=== PATIENT | male | born 1990 | race Caucasian/White ===

== ENCOUNTER → 2019-09-05 | Outpatient (CLI) | payer SELFPAY ==
--- NOTE | 2019-09-05 14:19 | ER RDC ASSESSMENT REPORT ---
Intake - In the Last 14 days Have you traveled outside [place]?: No Have you been in close contact with someone CONFIRMED: Yes Worked in Healthcare?: No - Symptoms Subjective Fever([place] feverish): No Chills: No Muscule Aches: Yes Runny Nose: No Sore Throat: No Cough (New or worsening chronic cough): Yes Shortness of breath: No Nausea or Vomiting: No Headache: Yes Abdominal Pain: No Diarrhea(3 or more loose stools in last 24 hours): No - Do you have any of the following Chronic lung disease: Asthma or emphysema or COPD: No Cystic Fibrosis: No Diabetes: No High Blood Pressure: No Cardiovascular Disease: No Chronic Kidney Disease: No Chronic Liver Disease: No Chronic blood disorder like Sickle Cell Disease: No Weak immune system due to disease or medication: No Neurologic condition that limits movement: No Developmental delay - Moderate to Severe: No Morbid Obesity (>100 pounds over ideal weight): No - Objective Temperature: 97.2 F Pulse Rate: 85 Respiratory Rate: 18 Blood Pressure: 130/75 O2 Sat by Pulse Oximetry: 96 Objective: Given above, testing performed: covid Disposition: Home; Selfcare General - General Chief Complaint: Other Time Seen by Provider: 09/05/19 14:15 Mode of Arrival: Ambulatory Information source: Patient - HPI Notes: 28-year-old male presents to [facility] clinic for COVID-19 testing. Patient reports recent exposure to mother who has now tested positive. He does have some mild symptoms, onset 09/02/2019. He is reporting mild myalgia, a dry cough that comes and goes, and headache. Denies any fever, chills, rhinorrhea, sore throat, shortness of breath, nausea or vomiting, abdominal pain or diarrhea. Past Medical History - General Information source: Patient - Social History Smoking Status: Current Every Day Smoker - Past Medical History Cardiac Medical History: Reports: None Pulmonary Medical History: Reports: None EENT Medical History: Reports: None Neurological Medical History: Reports: None Endocrine Medical History: Reports: None Renal/ Medical History: Reports: None Malignancy Medical History: Reports None GI Medical History: Reports: None Musculoskeletal Medical History: Reports None Skin Medical History: Reports None Psychiatric Medical History: Reports: None Traumatic Medical History: Reports: None Infectious Medical History: Reports: None Past Surgical History: Reports: None Physical Exam - General General appearance: Appears well, Alert In distress: None Notes: PHYSICAL EXAMINATION: GENERAL: Well-appearing and in no acute distress. HEAD: Atraumatic, normocephalic. EYES: sclera anicteric, conjunctiva are normal. ENT: nares patent. Moist mucous membranes. NECK: Normal range of motion, supple without lymphadenopathy. LUNGS: No increased work of breathing. Lung sounds CTAB and equal. No wheezes rales or rhonchi. HEART: Regular rate and rhythm without murmurs. ABDOMEN: Soft, nontender, normal bowel sounds, no guarding. EXTREMITIES: Normal range of motion, no pitting edema. No cyanosis. NEUROLOGICAL: A&O x 3. Normal speech. PSYCH: Normal mood, normal affect. SKIN: Warm, Dry, normal turgor, no rashes or lesions noted Diagnostic Results Laboratory Results: COVID pending Patient Education/Counseling Counseling/Education: Patient presents with symptoms associated with possible Covid 19 infection. Patient does not have emergency worrying symptoms such as difficulty breathing, shortness of breath, chest pain, pressure, confusion or cyanosis. Patient appears suitable for discharge as vital signs are stable and patient is nontoxic in appearance. Good return precautions have been discussed with patient, patient verbalized understanding and is agreeable with discharge plan of care at this time. Guidance for worsening S/SX: As a person under investigation for Covid 19, the [place] department of Health and Human Services, division of public health advises you to adhere to the following guidance until your test results are reported to you. If your test result is positive, you will receive additional information from your provider and your local health department at that time. Remain at home until you are cleared by the health provider or public health authorities. Keep a log of visitors to your home, notify any visitors to your home of your isolation status. If you plan to move to a new address or leave the county, notify the local health department in your County. Call your doctor or seek care if you have an urgent medical need. Before seeking medical care, call ahead to get instructions from the provider before arriving at the medical office clinic or hospital. Notify them that you are being tested for the virus that causes Covid 19 so that arrangements can be made, as necessary, to prevent transmission to others in the healthcare setting. Next, notify the local health department in your county. If a medical emergency arises and you need to call 911, inform the first responders that you are being tested for the virus that causes Covid 19. Next, notify the local health department in your county. RDC Discharge - Discharge Clinical Impression: Encounter for screening laboratory testing for COVID-19 virus Condition: Good Disposition: Home; Selfcare
[2019-09-05 14:20] VITALS: BP 130/75
== END ==
LOC: RDC 13:39
PROVIDERS: ATTEND Registered Nurse
DX: U07.1 COVID-19 (principal); R05 Cough; M79.10 Myalgia, unspecified site; R51 Headache; F17.200 Nicotine dependence, unspecified, uncomplicated
CPT/HCPCS: 87635; 99201 ×2; C9803